=== PATIENT | female | born 1975 | race Caucasian/White ===

== ENCOUNTER 2017-03-25 19:06 | Observation (INO) ==
[2017-03-25 20:09] LABS: Basophils # 0.1 K/mcL (0.0-0.2); Basophils % 0.5 %; Eosinophils # 0.1 K/mcL (0.0-0.6); Eosinophils % 1.3 %; Hematocrit 42.5 % (35.3-44.9); Hemoglobin 13.9 g/dL (11.5-15.4); Immature Granulocytes % 0.2 % (0-4); Lymphocytes # 2.5 K/mcL (0.6-4.6); Lymphocytes % 25.1 %; Mean Corpuscular HGB Conc 32.7 g/dL (31.6-35.5); Mean Corpuscular Hemoglobin 29.1 pg (28.0-33.3); Mean Corpuscular Volume 89.1 fL (83.0-100.0); Monocytes # 0.7 K/mcL (0.0-1.3); Monocytes % 6.6 %; Neutrophils # 6.5 K/mcL (1.6-8.9); Platelet Count 440 K/mcL (140-400); Red Blood Count 4.77 M/mcL (3.82-4.97); Red Cell Distribution Width 13.4 % (11.5-14.5); Segmented Neutrophils % 66.3 %
[2017-03-25 20:21] LABS: BUN/Creatinine Ratio 13 (6-26); Blood Urea Nitrogen 12 mg/dL (7-20); Calcium 10.2 mg/dL (8.6-10.8); Carbon Dioxide 25 mEq/L (19-29); Chloride 103 mEq/L (98-109); Glucose 120 mg/dL (70-99); Osmolality,Calculated 285 (280-300); Potassium 3.3 mEq/L (3.5-4.5); Sodium 137 mEq/L (136-145); eGFR For African Americans > 60 (> 60); eGFR For Non-African Americans > 60 (> 60)
--- NOTE | 2017-03-25 22:22 | Emergency Department Note ---
Disposition Clinical Impression: Chest pain Qualifiers: Chest pain type: precordial pain Qualified Code(s): R07.2 - Precordial pain Disposition: Admitted As Inpatient Condition: Fair Time of Disposition: 23:19 General Adult HPI - General Chief complaint: ED Shortness of Breath/Dyspnea Stated complaint: SOB// high BP177/105 Time Seen by Provider: 03/25/17 20:52 Source: patient Limitations: no limitations Nursing Notes Reviewed: Yes Vital Signs Reviewed: Yes - History of Present Illness HPI Narrative: Patient is a 41-year-old female who presents to [facility] ED with a chief complaint of elevated blood pressure of 170/110 as well as "weird feeling in her left face and left neck. She also describes some epigastric burning sensation. Denies any nausea, vomiting, fever or chills. States she has felt her blood pressure high before. States she felt a pulsating sensation in the left side of her neck earlier today as well as a vibration sensation. States she called her cousin who is a nurse at her facility who told her to take her blood pressure. She took it and it was 170/ 110 and was recommended that she come into the emergency department. Patient denies any weakness in her arms or legs. No slurred speech or visual difficulties. No headache. No problems eating drinking or with urination or bowel movements. Onset (ago): hour(s) Location: face, neck, chest Radiation: non-radiation Pain Severity: moderate Pain Scale: 3 Improves with: nothing Worsens with: nothing Associated symptoms: Reports: denies other symptoms. Denies: chest pain, cough , headaches, nausea/vomiting, shortness of breath, weakness Treatments Prior to Arrival: none - Related Data Home Medications Medication Instructions Recorded Confirmed Levothyroxine [Synthroid] 150 mcg PO DAILY 03/26/17 03/26/17 Lisdexamfetamine Dimesylate 70 mg PO DAILY 03/26/17 03/26/17 [Vyvanse] amLODIPine [Norvasc] 5 mg PO DAILY 03/26/17 03/26/17 Allergies Allergy/AdvReac Type Severity Reaction Status Date / Time propoxyphene Allergy Vomiting Verified 03/25/17 19:47 [From Priscilla-N] All systems ED: reviewed and negative except as stated. Past Medical History - Past Medical History Attestation: Yes The following information was validated with the patient. Source: patient Medical history: Reports: hypertension, thyroid disease Surgical history: Reports: non-contributory Psychiatric history: Reports: ADHD - Social History Smoking Status: Never smoker Smokeless Tobacco Status: No Alcohol use: Reports: rarely Drug use: Reports: none Physical Exam - General Limitations: no limitations General appearance: alert - Head Head exam: atraumatic, normocephalic, normal inspection - Eye Eye exam: Present: normal appearance, PERRL, EOMI - ENT ENT exam: normal exam, normal oropharynx, mucous membranes moist - Neck Neck exam: Present: normal inspection, full ROM, trachea midline, other (No bruits) - Chest Chest inspection: Present: normal inspection, symmetric chest wall rise - Respiratory Respiratory exam: Present: normal lung sounds bilaterally - Cardiovascular Cardiovascular exam: Present: regular rate, normal rhythm, normal heart sounds - Abdominal Exam Abdominal exam: Present: soft, Non-Tender. Absent: tenderness, distention, guarding, rebound, rigidity - Extremities Exam Extremities exam: Present: normal inspection, full ROM. Absent: tenderness, pedal edema - Back Exam Back exam: Present: normal inspection, full ROM. Absent: tenderness - Neurological Exam Neurological exam: Present: alert - Psychiatric Psychiatric exam: Present: normal affect, normal mood - Skin Skin exam: Present: warm, dry, intact, normal color Course Course Narrative: Patient seen and examined. Patient describing hearing something coming from her carotid arteries. Also describing a funny sensation in her face. I do not feel this warrants a full stroke workup. She does has an NIH score of 0. Patient does have elevated blood pressure while she is here but I do not see a reason to treat it at this time. We will have her follow up with her primary care physician to get under better control. He recently started a new medication that she cannot remember the name of. We will have her call the office on Tuesday morning to see about increasing the dose. Due to patient's younger age and no risk factors aside from hypertension, I do not suspect that she would have carotid stenosis at this time. We will write her an outpatient lab radiology slipped to get this done on outpatient basis. Patient understand she may need prior authorization in order to do this. - Reevaluation(s) Reevaluation #1: Patient's lab work appeared unremarkable. Her EKG did show some signs of ST depression as well as inverted T waves that appear new from her prior EKG in 2012. With her symptoms of chest pain intermittently and these EKG changes we will admit her for observation and chest pain rule out ACS. I spoke with patient about the results and she agrees with admission. I spoke with the hospitalist who has accepted patient for admission. Time: 23:18 Vital Signs Temperature 98.4 F 03/25/17 19:41 Pulse Rate 103 03/25/17 19:41 Respiratory Rate 16 03/25/17 19:41 Blood Pressure 165/105 03/25/17 19:41 O2 Sat by Pulse Oximetry 97 03/25/17 19:41 Temperature 98.3 F 03/26/17 18:39 Pulse Rate 78 03/26/17 18:39 Respiratory Rate 18 03/26/17 18:39 Blood Pressure 123/84 03/26/17 18:39 O2 Sat by Pulse Oximetry 94 03/26/17 18:39 Oxygen Delivery Oxygen Delivery Room Air Medical Decision Making - Medical Records Medical records reviewed: Yes I reviewed the patient's medical records. - Lab Data Lab results reviewed: Yes I reviewed the patient's lab results. Result diagrams: 03/25/17 19:55 03/25/17 19:55 Lab Results 03/25/17 03/25/17 03/25/17 Range/Units 19:55 19:55 19:55 WBC 9.8 (4.3-11.1) K/mcL RBC 4.77 (3.82-4.97) M/mcL Hgb 13.9 (11.5-15.4) g/dL Hct 42.5 (35.3-44.9) % MCV 89.1 (83.0-100.0) fL MCH 29.1 (28.0-33.3) pg MCHC 32.7 (31.6-35.5) g/dL RDW 13.4 (11.5-14.5) % Plt Count 440 H (140-400) K/mcL MPV 9.0 L (9.4-12.4) fL Immature Gran % 0.2 (0-4) % Seg Neutrophils % 66.3 % Lymphocytes % 25.1 % Monocytes % 6.6 % Eosinophils % 1.3 % Basophils % 0.5 % Neutrophils # 6.5 (1.6-8.9) K/mcL Lymphocytes # 2.5 (0.6-4.6) K/mcL Monocytes # 0.7 (0.0-1.3) K/mcL Eosinophils # 0.1 (0.0-0.6) K/mcL Basophils # 0.1 (0.0-0.2) K/mcL Sodium 137 (136-145) mEq/L Potassium 3.3 L (3.5-4.5) mEq/L Chloride 103 (98-109) mEq/L Carbon Dioxide 25 (19-29) mEq/L BUN 12 (7-20) mg/dL Creatinine 0.91 (0.57-1.11) mg/dL Est GFR ( Amer) > 60 (> 60) Est GFR (Non-Af Amer) > 60 (> 60) BUN/Creatinine Ratio 13 (6-26) Glucose 120 H (70-99) mg/dL Calculated Osmolality 285 (280-300) Calcium 10.2 (8.6-10.8) mg/dL Troponin I 0.02 (0-0.03) ng/mL - Radiology Data Radiology results reviewed: Yes I reviewed the patient's radiology results. Chest X-Ray 03/25/17 19:48 IMPRESSION: No acute findings. D/ / Deanna Chaparro MD / Deanna Chaparro MD Interpreting Provider: Deanna Chaparro MD - EKG Data EKG #1 EKG attestation: Yes I reviewed and interpreted this EKG. EKG results narrative: EKG done at 1929 shows normal sinus rhythm with a rate of [address] elevation. There does appear to be some mild ST depression in leads V3 through V6 along with inverted T waves. This does appear new from prior EKG done 2012. Normal axis. Attestation Statement - Attestation Attestation: I examined this patient and my medical decision-making was reviewed with the Resident Physician. I agree with the documented findings, disposition and treatment plan as described except to the extent set forth below. Patient to ED complaining of pulsation in her neck. Patient has been having some epigastric pain. Her blood pressures been running high. She was initially started on a new medication that starts within a period she states she is on the pulsatile sensation in her neck and she is concerned that could be something wrong with her carotids. She is also experiencing some epigastric pain. HEENT exam shows no acute distress. Heart regular rate and rhythm lungs are clear. No carotid bruit. Plan. The patient has some new EKG changes will be admitted for further cardiac workup.
[2017-03-25] MEDS ORDERED: Ibuprofen 600 MG TABLET PO ONE (22:31)
[2017-03-25] MEDS ORDERED: Aspirin 81 MG TAB.CHEW ONE (23:55)
[2017-03-26] MEDS ORDERED: Naloxone 0.4 MG/ML INJ IVP PRN (00:03)
[2017-03-26] MEDS: Aspirin 325 MG TABLET PO ONE ×2 (00:07)
--- NOTE | 2017-03-26 00:11 | Internal Med History&Physical ---
Date of Encounter: 03/26/17 Time of Encounter: 00:06 Assessment and Plan (1) Chest pain Current visit: Yes Status: Acute check stress testing in a.m. Due to wooshing sound and left neck symptom, will order US doppler left neck and TTE. Trend trop Qualifiers: Chest pain type: precordial pain Qualified Code(s): R07.2 - Precordial pain (2) Hypothyroid Current visit: Yes Status: Acute Qualifiers: Qualified Code(s): E03.9 - Hypothyroidism, unspecified (3) HTN (hypertension), benign Current visit: Yes Status: Acute continue norvasc -recently started (4) ADHD (attention deficit hyperactivity disorder) Current visit: Yes Status: Acute continue med Qualifiers: Attention deficit-hyperactivity disorder type: combined inattentive- hyperactive Qualified Code(s): F90.2 - Attention-deficit hyperactivity disorder, combined type Internal Medicine - H&P: HPI Chief complaint: chest pain History of present illness: Ms. Espinosa is a 41 year old female with hx of HTN, ADHD who presents with chest pain evaluation. She noted onset of sternal chest discomfort since today, feels like a pinch, with radiation to left breast, lasting 30 sec or so, associated with SOB, but not extertional dependent. Feels like indigestion but not burning. She also noticed associated tightness along left neck down the left arm and also a "pulsatile/throbbing left akbar sensation" with "wooshing sound" appreciated. Family hx of CAD/OR in P.GF, M.GM, Half brother EKG reviewed by self with rate 72, non-specific T wave depression lateral leads. Past Med Surg Social Fam HX - Past Medical History Medical history: hypertension, thyroid disease Psychiatric history: ADHD - Past Surgical History Surgical History: non-contributory - Social History Smoking Status: Never smoker Smokeless Tobacco Status: No Alcohol use: rarely Drug use: none - Additional Family History Additional family history: HTN, CAD/OR Internal Medicine - H&P: Meds Ibuprofen [Motrin] 800 mg PO Q6-8H PRN #30 tablet 09/15/15 [Rx] Lisdexamfetamine Dimesylate [Vyvanse] 09/15/15 [History] Synthroid 09/15/15 [History] Acyclovir [Zovirax] 800 mg PO 5XD #25 tablet 05/28/16 [Rx] Docosanol [Abreva] 1 applic TP TID 7 Days 05/28/16 [Rx] 3 Allergy/AdvReac Type Severity Reaction Status Date / Time acetaminophen Allergy Vomiting Verified 03/25/17 19:47 [From Darvocet-N] propoxyphene Allergy Vomiting Verified 03/25/17 19:47 [From Darvocet-N] All Systems PM: A 10-system review of systems was performed and is negative for pertinent findings except as documented above in the HPI. Review of systems: ROS 14 point review of systems reviewed as best as possible given presentation. Pertinent positive or negative as per HPI or otherwise reviewed as negative - Constitutional Vitals: Temp Pulse Resp BP Pulse Ox 98.4 F 86 16 147/109 96 03/25/17 19:41 03/25/17 22:31 03/25/17 22:31 03/25/17 22:31 03/25/17 22:31 Exam: General - AAO x 3 Psych - Appropriate affect/speech. No agitation Eyes - CATHERINE. Eye lids intact. No scleral icterus ENT - Oral mucosa pink, dentition intact. External ear clear/dry/intact. No thyromegaly Lymphatics - No cervical/inguinal lympadenopathy Neuro - No gross peripheral or central neuro deficits with intact CN 2-12 exam Heart - Sinus. RRR. S1 and S2 present. No added HS/murmurs appreciated. No elevated JVD appreciated. No calf swellings/erythema Lung - Adequate air entry b/l, No crackes/wheezes appreciated GI - Soft, non-tender. No hepatosplenomegaly/ascites. BS+ - No CVA/suprapubic tenderness or palpable bladder distension Skin - Intact. No rash/petechiae/ecchymosis. Warm extremities MSK - Joints with normal ROM. No joint swellings Internal Med - H&P Results - Labs CBC & Chem 7: 03/25/17 19:55 03/25/17 19:55
[2017-03-26] MEDS ORDERED: Aspirin 81 MG TAB.CHEW PO ONE (00:15)
[2017-03-26] MEDS ORDERED: Aspirin 81 MG TAB.CHEW PO SCH ×3 (00:15)
[2017-03-26] MEDS: amLODIPine 5 MG TABLET PO SCH (10:43)
[2017-03-26] MEDS ORDERED: Acetaminophen 325 MG TABLET PO PRN (11:11)
[2017-03-26] MEDS ORDERED: *HR* Morphine 2 MG/ML SYRINGE IVP PRN (11:11)
--- NOTE | 2017-03-26 12:59 | Internal Med Progress Note ---
Date of Encounter: 03/26/17 Time of Encounter: 11:00 - Assessment and plan (1) Chest pain Current Visit: Yes Status: Acute Assessment and plan: Patient currently denies chest pain or shortness of breath. She does endorse a mild headache. She is also endorsing a whooshing/vomiting/vibrating since patient to the left side of her neck however carotid ultrasound negative and no bruit appreciated on examination. No venous distention. Echocardiogram pending. Second part of her stress test will be tomorrow. Troponins negative 3. Chest x-ray negative. We will continue to monitor in the meantime. ITS Impressions Chest X-Ray 03/25/17 19:48 IMPRESSION: No acute findings. D/ / Deanna Chaparro MD / Deanna Chaparro MD Interpreting Provider: Deanna Chaparro MD 03/26/17 10:13 - [facility]: [id number] : 1975 Patient Age: 41 CAROTID ULTRASOUND APPEARS WITHIN NORMAL LIMITS BILATERALLY. GIANNA ALMONTE RDCS Qualifiers: Chest pain type: precordial pain Qualified Code(s): R07.2 - Precordial pain (2) HTN (hypertension), benign Current Visit: Yes Status: Chronic Assessment and plan: Controlled, home dosing of amlodipine continued. We will continue to trend (3) ADHD (attention deficit hyperactivity disorder) Current Visit: Yes Status: Chronic Assessment and plan: Mood and affect stable. Continue home medication of Vyvanse Qualifiers: Attention deficit-hyperactivity disorder type: combined inattentive- hyperactive Qualified Code(s): F90.2 - Attention-deficit hyperactivity disorder, combined type (4) Hypothyroid Current Visit: Yes Status: Chronic Assessment and plan: TSH checked a couple of months ago, normal (5) Obese Current Visit: Yes Status: Chronic Qualifiers: Obesity type: due to excess calories Obesity classification: adult class 2 (BMI 35 ? 39.9) Serious obesity comorbidity presence: without serious comorbidity Body mass index: BMI 39.0-39.9 Qualified Code(s): E66.09 - Other obesity due to excess calories; Z68.39 - Body mass index (BMI) 39.0-39.9, adult - Subjective Interval history: Patient seen and examined. On examination, patient sleeps supine in bed. She awakened easily to voice. She states she has a mild headache that improved slightly. She states that she continues to have a humming, Alex, and a vibrating sounds on the left side of her neck and into her left ear. She denies chest pain or shortness of breath at this time. She states she is eating well. - Constitutional Vitals: Temp Pulse Resp BP Pulse Ox 98.0 F 74 16 129/87 94 03/26/17 11:15 03/26/17 11:15 03/26/17 11:15 03/26/17 11:15 03/26/17 11:15 General appearance: Present: A&O X 3, pleasant, no acute distress, obese, answers questions appropriately - Head Head exam: Present: atraumatic, normocephalic - Eye Eye exam: Present: PERRL, conjuntiva pink, sclera anicteric Pupils: Present: PERRL - Neck Neck exam general surgery: Present: supple, trachea midline. Absent: lymphadenopathy - Expanded Neck Exam Neck exam: Absent: carotid bruit - Respiratory Respiratory exam: Present: CTAB. Absent: accessory muscle use, rales, respiratory distress, rhonchi, wheezes - Cardiovascular Cardiovascular exam: Present: RRR, +S1, +S2. Absent: diastolic murmur, gallop, rubs, systolic murmur - GI/Abdominal GI/Abdominal exam: Present: normal bowel sounds, soft, no peritoneal signs. Absent: distended, tenderness - Extremities Exam Extremities exam: Present: warm, radial pulses palpable and symmetrical. Absent : calf tenderness, cyanotic, pedal edema - Neurological Exam Neurological exam: Present: alert, CN II-XII intact, oriented X3, no focal deficits, strengths equal and symetr throughout. Absent: pronater drift, facial droop, speech deficit - Skin Skin exam: Present: dry, intact, normal color, warm Internal Medicine: Result - Labs CBC & Chem 7: 03/25/17 19:55 03/25/17 19:55 Labs: Cardiac Enzymes 03/26/17 03/26/17 Range/Units 00:53 06:27 Troponin I 0.00 0.01 (0-0.03) ng/mL Consult Discharge Plan - Plan Referrals: Kanchan Romero DO [Primary Care Provider] -
[2017-03-26] MEDS: *HR* HYDROcodone/Acet 5/325 mg TABLET PO PRN (17:53)
[2017-03-26] MEDS: Acetaminophen 325 MG TABLET PO PRN (20:05)
[2017-03-27 05:01] LABS: BUN/Creatinine Ratio 14 (6-26); Blood Urea Nitrogen 13 mg/dL (7-20); Calcium 9.2 mg/dL (8.6-10.8); Carbon Dioxide 26 mEq/L (19-29); Chloride 105 mEq/L (98-109); Glucose 112 mg/dL (70-99); Magnesium 2.4 mg/dL (1.6-2.6); Osmolality,Calculated 289 (280-300); Potassium 3.6 mEq/L (3.5-4.5); Sodium 139 mEq/L (136-145); eGFR For African Americans > 60 (> 60); eGFR For Non-African Americans > 60 (> 60)
[2017-03-27] MEDS: Acetaminophen 325 MG TABLET PO PRN (10:14)
[2017-03-27] MEDS: amLODIPine 5 MG TABLET PO SCH (10:15)
--- NOTE | 2017-03-27 13:49 | Cardiology Consult Note ---
Date of Encounter: 03/27/17 Time of Encounter: 12:30 Assessment and Plan (1) Chest pain Current Visit: Yes Status: Acute Per cardiology: -Chest pain at rest. Denies excertional symptoms. -HTN on admission with BP 170s systolic. -Troponins negative x4. -ECG with no ischemic changes. -Denies current chest pain. -Echo with LVEF 60%, mild diastolic dysfunction, mild AR, all almaguer with normal motion. -ABnormal stress test. -Will continue to monitor. Qualifiers: Chest pain type: precordial pain Qualified Code(s): R07.2 - Precordial pain (2) Abnormal stress test Current Visit: Yes Status: Acute Per cardiology: -Nuclear stress with small sized, mild intensity, reversible ischemia involving mid-apical anteroseptum. -Discussed at length with patient, who at this time prefers medical management. -Beta blcoker and asa added. Will check Lipids and LFTs in am. (3) HTN (hypertension), benign Current Visit: Yes Status: Chronic Per cardiology: -KNown HTN, however was not on medication. -BP 170s systolic on admission. -Will stop norvasc. -Started beta tiffany. -Will continue to monitor. Discussion w patient/family: The assessment and plan as outlined above was discussed with the patient who expressed understanding and agreement. All questions were answered. Thank you for involving us in the care of your patient. Please call with any questions. Discussed and reviewed with . History of Present Illness Consult date: 03/27/17 Requesting physician: Juhi Moreira Consult reason: abnormal stress test Chief complaint: chest pain History of present illness: Ms. Espinosa is a 41 year old female with a relevant past medical history of HTN, obesity. Patient reports family history of CAD with half brother having [place] in his 50s. Patient also reports second degree relatives with CAD. Patient states she was at her desk when she had sudden onset of midsternal chest pain. Patient states it felt somewhat like indigestion pain. Patient denies aggravating factors. Patient states was given ASA in ER and pain resolved. Patient denies current chest pain. Pateint denies shortness of breath or increased fatigue. Patient does report increased stress with the passing of her father and work related stress. Past Med Surg Social Fam HX - Past Medical History Attestation: Yes The following information was validated with the patient. Source: patient, old records reviewed Medical history: hypertension, thyroid disease Psychiatric history: ADHD - Past Surgical History Surgical History: non-contributory - Social History Smoking Status: Never smoker Smokeless Tobacco Status: No Alcohol use: rarely Drug use: none - Family History Paternal Grandfather Age at : 60 Hx Family Cardiac Disorders: Yes ([place]) Hx Family Endocrine Disorder: Yes (DM) Medications and Allergies Levothyroxine [Synthroid] 150 mcg PO DAILY 03/26/17 [History] Lisdexamfetamine Dimesylate [Vyvanse] 70 mg PO DAILY 03/26/17 [History] amLODIPine [Norvasc] 5 mg PO DAILY 03/26/17 [History] 3 Allergy/AdvReac Type Severity Reaction Status Date / Time propoxyphene Allergy Vomiting Verified 03/25/17 19:47 [From PriscillaElpidio] All Systems Review: A 10-system review of systems was performed and is negative for pertinent findings except as documented above in the HPI. - Cardiovascular Cardiovascular: as per HPI, chest pain at rest Physical Examination Vital Signs Temperature 98.4 F 03/25/17 19:41 Pulse Rate 103 03/25/17 19:41 Respiratory Rate 16 03/25/17 19:41 Blood Pressure 165/105 03/25/17 19:41 O2 Sat by Pulse Oximetry 97 03/25/17 19:41 Temperature 98.0 F 03/27/17 07:00 Pulse Rate 66 03/27/17 07:00 Respiratory Rate 16 03/27/17 07:00 Blood Pressure 122/82 03/27/17 07:00 O2 Sat by Pulse Oximetry 94 03/27/17 07:00 Oxygen Delivery Oxygen Delivery Room Air General: Conversant, No Apparent Distress HEENT: Atraumatic, Normocephaly, Mucus Membranes Moist Neck: No JVD, Normal carotid pulses Cardiac: Reg Rate and Rhythm, Normal S1 and S2, No Murmur Lungs: Normal Breath Sounds, No Wheeze, Rales, Rhonchi Neuro: Alert and responsive, No focal deficits noted Abdomen: Soft, Non-Tender Skin: No rashes noted on visualized skin Musculoskeletal: No Chest Wall Tenderness Extremities: No Clubbing, No Cyanosis, No Edema, Normal Pulses Results 03/25/17 19:55 03/27/17 04:04 Lab Results Active Medications Acetaminophen (Tylenol) 650 mg PO Q6HR PRN PRN Reason: Mild Pain/Fever Stop: 09/25/17 11:12 Last Admin: 03/27/17 10:14 Dose: 650 mg Hydrocodone Bitart/Acetaminophen ([place] 5-325 Mg) 1 tab PO Q6HR PRN PRN Reason: Moderate Pain Stop: 09/25/17 11:12 Last Admin: 03/26/17 17:53 Dose: 1 tab Levothyroxine Sodium (Synthroid) 125 mcg PO 0630 [facility] Stop: 09/25/17 06:31 Last Admin: 03/27/17 05:43 Dose: 125 mcg Metoprolol Succinate (Toprol Xl) 25 mg PO DAILY [facility] Stop: 09/26/17 13:46 Morphine Sulfate (Morphine Sulfate) 2 mg IVP Q4HR PRN PRN Reason: Severe Pain Stop: 09/25/17 11:12 Naloxone HCl (Narcan) 0.4 mg IVP Q2MIN PRN PRN Reason: Opioid Reversal Stop: 09/25/17 00:04 Pharmacy Profile Note (Patient Taking Own Medication) 1 each PO DAILY [facility] Stop: 09/25/17 09:01 Last Admin: 03/27/17 10:28 Dose: 1 each Laboratory Tests 03/25/17 03/25/17 03/26/17 19:55 19:55 00:53 Hgb 13.9 Creatinine Troponin I 0.02 0.00 03/26/17 03/26/17 03/27/17 06:27 13:12 04:04 Hgb Creatinine 0.92 Troponin I 0.01 0.00 - Imaging and Cardiology Chest Xray: report reviewed Stress Test: report reviewed Echo: report reviewed - EKG Interpretation EKG results cardiology: personally reviewed (ECG with SR, HR 72.), other ( Telemetry reviewed with average HR 75, sinsu rhythm. PVCs and PACs noted.) Consult Discharge Plan - Plan Referrals: Kanchan Romero DO [Primary Care Provider] -
[2017-03-27] MEDS: Aspirin Enteric Coated 81 MG Tablet PO SCH (17:37)
[2017-03-27] MEDS: Metoprolol XL (24 HR) Succ 25 MG TAB.ER.24H PO SCH (17:37)
--- NOTE | 2017-03-27 17:38 | Internal Med Progress Note ---
Date of Encounter: 03/27/17 Time of Encounter: 12:30 - Assessment and plan (1) Chest pain Current Visit: Yes Status: Acute Assessment and plan: Patient currently denies chest pain or shortness of breath. She is also endorsing a whooshing/vomiting/vibrating sensation to the left side of her neck however carotid ultrasound negative and no bruit appreciated on examination. No venous distention. Echocardiogram unremarkable with ejection fraction of 60% , mild diastolic dysfunction, mild AR. Euvolemic on examination. Troponins negative 3. Chest x-ray negative. Stress test was abnormal and cardiology was brought on board. Plan is to proceed with a left heart catheter tomorrow. Nothing by mouth at midnight. ITS Impressions Chest X-Ray 03/25/17 19:48 IMPRESSION: No acute findings. D/ / Deanna Chaparro MD / Deanna Chaparro MD Interpreting Provider: Deanna Chaparro MD 03/26/17 10:13 - Vascular Preliminary by Gianna Almonte [facility] Num: [id number] : 1975 Patient Age: 41 CAROTID ULTRASOUND APPEARS WITHIN NORMAL LIMITS BILATERALLY. GIANNA ALMONTE RDCS Echocardiogram impressions: LVEF 60%. Normal LV chamber size, wall thickness and function. Mild left ventricular diastolic dysfunction. Normal right ventricular structure and function. Mild aortic regurgitation. No evidence of pulmonary hypertension. 2 Day Nuclear stress test impression: Exercise ECG demonstrated worsening of baseline ST-T changes, especially in the inferior leads (2-3mm ST depression) suggestive of ischemia. Exercise capacity was good. No chest pain. Gated ejection fraction greater than 70%. Small size, mild intensity, reversible defect in the mid to apical anterior lateral segments possibly due to ischemia. Ordering provider notified via [employer]. Qualifiers: Chest pain type: precordial pain Qualified Code(s): R07.2 - Precordial pain (2) HTN (hypertension), benign Current Visit: Yes Status: Chronic Assessment and plan: Initially hypertensive, then controlled. Today, however, BP up to 149/102. Started on metoprolol per cardiology. Will trend and adjust medications as indicated. (3) ADHD (attention deficit hyperactivity disorder) Current Visit: Yes Status: Chronic Assessment and plan: Mood and affect stable. 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 On examination, patient sitting upright in bed preparing to eat her lunch. Patient states the pain and pressure in her chest has resolved. She is endorsing a normal appetite as well. She denies shortness of breath. - Constitutional Vitals: Temp Pulse Resp BP Pulse Ox 98.5 F 92 16 149/102 97 03/27/17 15:01 03/27/17 15:01 03/27/17 15:01 03/27/17 15:01 03/27/17 15:01 General appearance: Present: A&O X 3, morbidly obese, pleasant, no acute distress, answers questions appropriately - Head Head exam: Present: atraumatic, normocephalic - Eye Eye exam: Present: PERRL, conjuntiva pink, sclera anicteric Pupils: Present: PERRL - Neck Neck exam general surgery: Present: supple, trachea midline. Absent: lymphadenopathy - Respiratory Respiratory exam: Present: CTAB. Absent: accessory muscle use, rales, respiratory distress, rhonchi, wheezes - Cardiovascular Cardiovascular exam: Present: RRR, +S1, +S2. Absent: diastolic murmur, gallop, rubs, systolic murmur - GI/Abdominal GI/Abdominal exam: Present: normal bowel sounds, soft, no peritoneal signs. Absent: distended, tenderness - Extremities Exam Extremities exam: Present: warm, radial pulses palpable and symmetrical. Absent : calf tenderness, cyanotic, pedal edema - Neurological Exam Neurological exam: Present: alert, CN II-XII intact, normal gait, oriented X3, no focal deficits, strengths equal and symetr throughout. Absent: pronater drift, facial droop, speech deficit - Skin Skin exam: Present: dry, intact, normal color, warm Internal Medicine: Result - Labs CBC & Chem 7: 03/25/17 19:55 03/27/17 04:04 Labs: BMP 03/27/17 04:04 Sodium 139 Potassium 3.6 Chloride 105 Carbon Dioxide 26 BUN 13 Creatinine 0.92 Glucose 112 H Calcium 9.2 Consult Discharge Plan - Plan Referrals: Kanchan Romero DO [Primary Care Provider] -
[2017-03-28 06:14] LABS: Prothrombin Time 11.1 Seconds (9.4-12.1)
[2017-03-28 06:32] LABS: Alanine Aminotransferase 36 Units/L (0-55); Aspartate Amino Transferase 23 Units/L (5-34); BUN/Creatinine Ratio 15 (6-26); Blood Urea Nitrogen 13 mg/dL (7-20); Calcium 9.4 mg/dL (8.6-10.8); Carbon Dioxide 25 mEq/L (19-29); Chloride 105 mEq/L (98-109); Chol/HDL Ratio 3.4 (0-4.9); Cholesterol 169 mg/dL (< 200); Glucose 111 mg/dL (70-99); HDL Cholesterol 49 mg/dL (40-59); LDL Cholesterol,Calculated 100 mg/dL (0-99); Osmolality,Calculated 289 (280-300); Potassium 3.6 mEq/L (3.5-4.5); Sodium 139 mEq/L (136-145); Triglycerides 100 mg/dL (< 150); eGFR For African Americans > 60 (> 60); eGFR For Non-African Americans > 60 (> 60)
--- NOTE | 2017-03-28 08:31 | Carotid Imaging Report ---
Carotid Duplex Patient Name:Reina Espinosa Order Number:[id number] Procedure Date:03/26/2017 Date:1975Age:41 yrs Gender:Female Lt BP:122 / 85 mmHg Rt.BP:122 / 85 mmHgHeart Rate: Location:[facility] Room #: 3B48 Conveyor Technician:Gianna Almonte RDCS Referring MD:Ghislaine Thomas MD radio assembler:DO Ngozi Tran MD:Ibrahima Rendon MD Primary Indications:Pulsatile left carotid Risk Factors Yes/No Hypertension Yes Diabetes No Hypercholesterolemia No Smoking Current No Hx of TIA No Hx of CVA No Previous Vascular Surgery No Impressions: Findings: Bilateral carotid system is essentially normal. Findings Carotid Duplex: Argueta scale imaging combined with Doppler flow analysis suggests normal findings bilaterally. Right: The right proximal common carotid artery has a PSV of 76 cm/s and a EDV of 23 cm/s. The right mid common carotid artery has a PSV of 79 cm/s and a EDV of 24 cm/s. The right distal common carotid artery has a PSV of 67 cm/s and a EDV of 28 cm/s. The right bifurcation has a PSV of 62 cm/s and a EDV of 23 cm/s. The right proximal internal carotid artery has a PSV of 97 cm/s and a EDV of 43 cm/s. The right mid internal carotid artery has a PSV of 79 cm/s and a EDV of 38 cm/s. The right distal internal carotid artery has a PSV of 87 cm/s and a EDV of 43 cm/s. The right eca has a PSV of 94 cm/s and a EDV of 23 cm/s. The right vertebral artery has a PSV of 46 cm/s and a EDV of 16 cm/s. Left: The left proximal common carotid artery has a PSV of 104 cm/s and a EDV of 30 cm/s. The left mid common carotid artery has a PSV of 102 cm/s and a EDV of 30 cm/s. The left distal common carotid artery has a PSV of 91 cm/s and a EDV of 35 cm/s. The left bifurcation has a PSV of 91 cm/s and a EDV of 30 cm/s. The left proximal internal carotid artery has a PSV of 74 cm/s and a EDV of 31 cm/s. The left mid internal carotid artery has a PSV of 104 cm/s and a EDV of 38 cm/s. The left distal internal carotid artery has a PSV of 100 cm/s and a EDV of 44 cm/s. The left eca has a PSV of 94 cm/s and a EDV of 20 cm/s. The left vertebral artery has a PSV of 55 cm/s and a EDV of 26 cm/s. Prior Study: No prior study available for comparison. Carotid Results Right PSV EDV Assessment Proximal CCA 76 23 Normal Mid CCA 79 24 Normal Distal CCA 67 28 Normal Bifurcation 62 23 Normal Proximal ICA 97 43 Normal Mid ICA 79 38 Normal Distal ICA 87 43 Normal ECA 94 23 Normal Vertebral Artery 46 16 Normal Left PSV EDV Assessment Proximal CCA 104 30 Normal Mid CCA 102 30 Normal Distal CCA 91 35 Normal Bifurcation 91 30 Normal Proximal ICA 74 31 Normal Mid ICA 104 38 Normal Distal ICA 100 44 Normal ECA 94 20 Normal Vertebral Artery 55 26 Normal Ratio's Right ICA/CCA Ratio: 1.20 ICA/CCA Values: 97/79 Left ICA/CCA Ratio: 1.00 ICA/CCA Values: 104/104 Updated by Ibrahima Rendon MD on 03/26/2017 4:01:22 PM electronically signed on 03/26/2017 4:01:50 PM with status of Final
--- NOTE | 2017-03-28 08:35 | Nuclear Medicine Stress Report ---
Exercise Nuclear Stress 2 day Name: Reina Espinosa Date of Study: 03/26/2017 Date: 1975 Ht: 63.0 in Medical Record#: [id number] Age: 41 Wt: 218.0 lb Gender: Female Order #: [id number] Location: [facility] Room: [facility] Supervising Provider: Viky Coker CNP Reading Physician: Rodri Dolan DO, FACC, FASNC Ordering Physician: Juhi Moreira CNP Primary Care Physician: Kanchan Romero DO Stress Technologist: Loretta Garcia WAD LUBRICATOR, CCT Telecommunicator Supervisor: Marielos Boyce Indications: Chest Pain Impression: Exercise ECG demonstrated worsening of baseline ST-T changes, especially in the inferior leads (2-[address] depression) suggestive of ischemia. The exercise capacity was good. No chest pain. Gated EF > 70%. Small sized, mild intensity, reversible defect in the mid to apical anteroseptal segments possibly due to ischemia. Ordering provider notified via [employer]. History: Hypertension Stress Test Summary: Stress Test Type: Treadmill Protocol: Khai Baseline Information: Initial Heart Rate: 80 Blood Pressure: 122/86 Stress Information: Stress Time: 7 min 30 sec Test Terminated Due to (primary): Dyspnea Fatigue Maximum Blood Pressure: 172/84 Maximum Heart Rate: 173 Percent Maximum Heart Rate Achieved: 97 Double Product: 21194 METS Reached: 10.1 Symptoms: Shortness of breath, No chest symptoms Nuclear Summary: SPECT myocardial perfusion imaging using Tc99m Sestamibi given intravenously was performed at rest and following cardiac stress testing. The resting images were obtained following initial dose of 34.1 mCi. Following stress an additional dose of 34.7 mCi was given at peak exercise or 30 seconds post regadenoson infusion. Medication Given: Time Medication Dose Units Route Findings: Stress Note * Resting ECG demonstrated normal sinus rhythm with nonspecific ST-T changes. * No baseline arrhythmias were noted. * Exercise ECG demonstrated worsening of baseline ST-T changes, especially in the inferior leads (2-[address] depression) suggestive of ischemia. * No arrhythmias were noted during stress. * The exercise capacity was good. No chest pain. * Patient had no chest pain during stress. * Normal hemodynamic responses to exercise. Study Quality * Study quality is average. Gated EF > 70% * Gated EF > 70%. Left Ventricle * The left ventricle is not dilated. LVEDV = 71 mL. NORMALS * Normal wall motion. * Normal Segmental Perfusion in rest. Anterior Perfusion Stress * The mid to apical anteroseptal segments show a mild reduction in perfusion. TID * No evidence of transient ischemic dilatation. TID ratio = 0.95. Lung Uptake * There is no evidence of increase lung uptake. Updated by Rodri Dolan DO, FACRaman, ALEXA, GENET on 03/27/2017 11:49:40 AM electronically signed on 03/27/2017 11:51:29 AM with status of Final
[2017-03-28] MEDS: Aspirin Enteric Coated 81 MG Tablet PO SCH (09:23)
[2017-03-28] MEDS: Metoprolol XL (24 HR) Succ 25 MG TAB.ER.24H PO SCH (09:23)
--- NOTE | 2017-03-28 10:49 | Pre-Sedation Evaluation ---
Pre-sedation evaluation - Pre-sedation checklist Date of procedure: 03/28/17 Procedure: [facility] Recent Vitals: Last Vital Signs Temp 97.7 F 03/28/17 07:04 Pulse 70 03/28/17 07:04 Resp 16 03/28/17 07:04 BP 142/88 03/28/17 07:04 Pulse Ox 93 03/28/17 07:04 H&P (including ROS) documented in medical record: Yes Previous reaction to sedatives/anesthetics: No Dietary Status: NPO after Midnight Airway Assessment: Patient can open mouth completely, TMJ function normal ASA Classification *see protocol: CLASS II-Mild systemic disease Plan of Care: Pt appropriate candidate for procedure/moderate/conscious sedation , Risks/benefits of procedure/sedation discussed w/ patient/family
[2017-03-28] MEDS ORDERED: Verapamil 5 MG/2 ML VIAL ONE (14:27)
[2017-03-28] MEDS ORDERED: 0.9 % Sodium Chloride 1,000 ML ONE (14:27)
[2017-03-28] MEDS ORDERED: Heparin 1,000 UNITS/500 mL NS 500 ML ONE (14:28)
[2017-03-28] MEDS ORDERED: Nitroglycerin 1,000 MCG/10 ML VIAL IV ONE (14:28)
[2017-03-28] MEDS ORDERED: *HR* Heparin 10,000 UNIT/10 ML VIAL ONE (14:28)
[2017-03-28] MEDS ORDERED: *HR* Midazolam HCl 5 MG/5 ML VIAL IVP ONE (14:45)
[2017-03-28] MEDS ORDERED: *HR* FentaNYL (PF) 100 MCG/2 ML VIAL ONE (14:45)
--- NOTE | 2017-03-28 15:41 | Invasive Diagnostic Lab Proc ---
Name: Reina Espinosa Date of Study: 03/28/2017 Date: 1975 Ht: 61.8in Medical Record#: [id number] Age: 41 Wt: 218.26lb Gender: Female BSA: 1.98 Order #: [id number] BMI: 40.16 Physicians Procedure Physician: Khai Alexander MD, [facility] Referring MD: Referring MD: Staff Name Position Time In Ralph Arrington RN Auto Travel Counselor 02:47 PM Deysi Maldonado RN Auto Travel Counselor 02:47 PM Ruth Plummer RT (R) Scrub 02:48 PM Molly Moe RN Monitor 02:48 PM Awa Benavidez RT (R) Monitor 02:48 PM Indications Indication Abnormal Test - Stress Procedures Performed Procedure L HRT ARTERY/VENTRICLE ANGIO Pre-Procedure Checklist Informed consent is complete signed and on chart. H&P is on chart. ID band is on and ID verified with patient. Patient NPO for procedure The procedure was described for the patient and questions were answered. Blood Pressure: 150/88 ECG is on chart. Rhythm: NSR Plan of Care Patient will tolerate the procedure without complications. Adequate level of comfort will be maintained. Hemodynamics will remain stable Patient will recover from procedure without complications. Respiratory function will be maintained. Cardiac rhythm will remain stable. Patient temperature will be maintained. Patient and/or family have verbalized understanding of the procedure. Patient Education Chief Complaint/Reason for Test: Cardiac Cath Developmental Category: Adult (18-64 years) Developmentally Appropriate for Age: Yes Learning Barriers: None Education Needs: Procedure Education Method: Verbal Information Taught: Cardiac Cath Educational Evaluation: Able to repeat information Intravenous Access Time IV Size Location DC'd Fluid/Drip Rate Units RN 02:52 PM 20g 1 08/04" Patent On Arrival Rt Antecubital 0.9NaCl 50 ml/hr Ralph Arrington RN Allergies propoxyphene acetaminophen DARVOCET Vital Signs Time BP (mmHg) HR (bpm) O2 Sat. RR (bpm) LOC 02:55 PM / % 5 = Fully awake and oriented or at pre-proc level 02:55 PM / % 4 = Oriented but drowsy 03:10 PM / % 5 = Fully awake and oriented or at pre-proc level 02:49 PM 150 / 88 69 97 % 02:53 PM 129 / 90 74 99 % 14 02:58 PM 121 / 82 66 95 % 15 03:03 PM 124 / 76 63 96 % 15 03:08 PM 123 / 80 80 97 % 21 03:13 PM 121 / 71 69 94 % 16 03:18 PM 132 / 91 67 96 % 21 03:23 PM 129 / 81 68 97 % 21 Procedural Medications Time Medication Dose Units Method Given By 02:54 PM Oxygen 2 L/min nasal cannula Ralph Arrington RN 02:54 PM Versed 3 mg Intravenous Ralph Arrington RN 02:54 PM Fentanyl 50 mcg Intravenous Ralph Arrington RN 03:06 PM Lidocaine 2% 0.5 ml Subcutaneous Khai Alexander MD, [facility] 03:08 PM Heparin 4000 units Nitroglycerin 200 mcg Verapamil 2.5 mg Intraarterial Khai Alexander MD, [facility] ASA Classification: CLASS II- Mild systemic disease (i.e. well-controlled diabetes, hypertension, asthma, cigarette smoking) Nichelle Score Preprocedure Postprocedure Activity 2- Moves 4 extremities sustained head lift Activity 2- Moves 4 extremities sustained head lift Circulation 2- SBP +/= 20 points of pre-anesthetic level Circulation 2- SBP +/= 20 points of pre-anesthetic level Consciousness 2- Awake and alert oriented x 3 Consciousness 2- Awake and alert oriented x 3 O2 Saturation 2- Able to maintain O2 satruation of 92% on room air O2 Saturation 2- Able to maintain O2 satruation of 92% on room air Respiratory 2- Able to deep breathe and cough well Respiratory 2- Able to deep breathe and cough well Total Score 10 Total Score 10 Contrast Agent: Isovue Diagnostic Contrast: 71 ml Total Contrast: 71 ml Fluoro Dose: 276 mGy Procedure Log Time Note Enter By 02:47 PM Pt arrived to hemodialysis lab technician 2 at 14:47 tsites 02:47 PM Ralph Arrington RN Position: Auto Travel Counselor Time in: 14:47 tsites 02:48 PM CathStat 02:48 PM Vitals capture started with the following parameters, Patient=Adult, Interval=5 min, Initial Zikxvzxd=072 mmHg, Deflation Rate=5 mmHg, Cuff placed on Right Arm 02:48 PM Deysi Maldonado RN Position: Auto Travel Counselor Time in: 14:47 tsites 02:48 PM Ruth Plummer RT (R) Position: Scrub Time in: 14:48 tsites 02:48 PM Molly Moe RN Position: Monitor Time in: 14:48 tsites 02:48 PM Sites, Awa RT (R) Position: Monitor Time in: 14:48 tsites 02:48 PM Patient charges- Angio tray pack, Navilyst 3mm J, Pulse Oximetry and ACIST tubing and transducer tsites 02:48 PM Case Delayed No tsites 02:49 PM Hair removed from procedure site in procedure lab using clippers. Right wrist & right groin prepped with Chloraprep by Deysi Maldonado RN, safety strap applied then patient was draped. Skin intact. tsites 02:49 PM HR=69 bpm, IJSE=119/88 mmhg, SpO2=97.0 % 02:49 PM Physican paged/called 14:49. tsites 02:49 PM Physican responded and notified patient is ready 14:49 tsites 02:49 PM Physician arrived 14:49 tsites 02:49 PM ASA Class CLASS II- Mild systemic disease (i.e. well-controlled diabetes, hypertension, asthma, cigarette smoking) tsites 02:49 PM Meet and greet completed tsites 02:49 PM Sign in performed according to hospital policy. tsites 02:49 PM Procedure start 14:49 tsites 02:53 PM HR=74 bpm, MSSS=269/90 mmhg, SpO2=99.0 %, Resp=14 B/min 02:54 PM Time: 14:54 Oxygen on at 2 L/min per nasal cannula by Ralph Arrington RN tsites 02:54 PM Time: 14:54 Versed 3 mg Intravenous Given by Ralph Arrington RN tsites 02:54 PM Time: 14:54 Fentanyl 50 mcg Intravenous Given by Ralph Arrington RN tsites 02:54 PM Time: 14:54 Patient comfortable and pain free: Yes tsites 02:55 PM Pressure channel 3 zeroed. 02:55 PM Time: 14:55LOC: 5 = Fully awake and oriented or at pre-proc level tsites 02:58 PM Pressure channel 3 zeroed. 02:58 PM HR=66 bpm, KNXB=057/82 mmhg, SpO2=95 %, Resp=15 B/min 03:03 PM HR=63 bpm, HECL=372/76 mmhg, SpO2=96 %, Resp=15 B/min 03:06 PM Time out performed according to hospital policy tsites 03:07 PM Time: 15:06 0.5 ml Lidocaine 2% to right radial Subcutaneous Given by Khai Alexander MD, [facility] tsites 03:07 PM Access obtained by percutaneous puncture. 5Fr 10cm Terumo Glidesheath sheath placed in right Radial artery. [id number] tsites 03:08 PM Time: 15:08 Patient given 4,000 units Heparin, 200 mcg Nitroglycerin, and 2.5 mg Verapamil Intraarterial by Khai Alexander MD, [facility] tsites 03:08 PM 5Fr TIG catheter inserted over the wire DN tsites 03:08 PM HR=80 bpm, YZMV=089/80 mmhg, SpO2=97 %, Resp=21 B/min 03:08 PM 0.035 260cm Navilyst 3mmJ wire [id number] tsites 03:09 PM wire removed tsites 03:10 PM Time: 14:54 Patient comfortable and pain free: Yes tsites 03:10 PM Time: 14:55LOC: 4 = Oriented but drowsy tsites 03:10 PM RCA angiography performed in multiple views. tsites 03:10 PM Recorded Pressure: Ao, HR=82, Condition=Condition 1 (Aorta) Ao 111/87/100 03:10 PM repositioned catheter tsites 03:11 PM LCA angiography performed in multiple views. tsites 03:11 PM Recorded Pressure: Ao, HR=62, Condition=Condition 1 (Aorta) Ao 105/76/91 03:13 PM wire reinserted tsites 03:13 PM HR=69 bpm, OJNU=003/71 mmhg, SpO2=94.0 %, Resp=16 B/min 03:14 PM Catheter removed tsites 03:15 PM 5Fr MPA catheter inserted over the wire [id number] tsites 03:17 PM Catheter removed tsites 03:18 PM 5Fr Pigtail catheter inserted over the wire [facility] tsites 03:18 PM Catheter selectively placed in left ventricle tsites 03:18 PM Pressure channel 3 zeroed. 03:18 PM Recorded Pressure: LV, HR=97, Condition=Condition 1 (Left Ventricle) LV 133/19/45 03:18 PM HR=67 bpm, HKIR=642/91 mmhg, SpO2=96.0 %, Resp=21 B/min, Comment=NSR 03:18 PM Bolus angiogram of left Ventricle complete: 10 ml/sec for a total of 20 mls tsites 03:18 PM Recorded Pressure: LV, Ao, HR=75, Condition=Condition 1 (Left Ventricle) LV 145/10/24, (Aorta) Ao 144/92/115 03:19 PM Catheter removed tsites 03:20 PM Wire removed tsites 03:20 PM Procedure completed at 15:19 tsites 03:21 PM Isovue 370 - 200ml,1 Bottle(s) used. tsites 03:21 PM 10 ml air in Vasc Band. tsites 03:21 PM Post ECG NSR tsites 03:22 PM Post Blood Pressure 132/91 tsites 03:22 PM 15:22 Post Pulses Bilateral radial 1+ tsites 03:22 PM Information taught Cardiac Cath and Vasc Band tsites 03:22 PM Education needs Procedure, Plan of Care, and Responsibilities of Patient in Care tsites 03:22 PM Learning barriers :None tsites 03:22 PM Education Methods Verbal tsites 03:22 PM Education evaluation Able to repeat information tsites 03:22 PM Site status No bleeding/hematoma - Rt Wrist as reported by Ruth Plummer RT (R) at 15:22 tsites 03:23 PM Plavix, Effient or Brilinta given No tsites 03:23 PM Delay to floor No tsites 03:23 PM HR=68 bpm, OPLA=190/81 mmhg, SpO2=97.0 %, Resp=21 B/min 03:24 PM Sign out completed: Radiation Dose 275.55 mGy Fluoro Time: 3.4 Isovue 370 - 200ml contrast 71 ml given by Khai Alexander MD, FACC. Complications: NoneCardiac Rehab Consult needed: NoConfirmed administered medications: Yes tsites 03:25 PM Time: 15:10LOC: 5 = Fully awake and oriented or at pre-proc level tsites 03:25 PM Report given to Lucille RN Pt taken to 3B Room #48. 15:25 tsites 03:26 PM Family placed in consult room. tsites 03:26 PM Complications: None tsites 03:26 PM Fluoro Time: 3.4 tsites 03:26 PM Isovue 370 - 200ml contrast 71 ml given by Khai Alexander MD, FACC. tsites 03:27 PM Radiation Dose 275.55 mGy tsites 03:27 PM Patient out of room: 15:27 tsites 03:27 PM Coronary Dominance: right tsites Complications Complication None Hemodynamics Pressures Site Systolic/A Wave Diastolic/V Wave Mean AO 111 87 100 AO 105 76 91 LV 133 19 45 LV 145 10 24 AO 144 92 115 Post Procedure Information Blood Pressure: 132/91 mmHg Rhythm: NSR Post procedural instructions were given Closure Device Time Device Success/Fail 03/28/2017 3:20:00 PM Mechanical Compression Successful Site Checks Time Location Status Staff Sheath In? Note 03:22 PM Rt Wrist No bleeding/hematoma Ruth Plummer RT (R) Pulses Time Site Pre-Procedure Post-Procedure Note 03/28/2017 2:53:00 PM Bilateral radial 2+ 03/28/2017 2:54:00 PM Bilateral DP & PT 2+ 3:22:00 PM Bilateral radial 1+ Updated by Awa Benavidez RT (R) on 03/28/2017 3:33:27 PM Awa Benavidez RT electronically signed on 03/28/2017 3:34:06 PM with status of Final
--- NOTE | 2017-03-28 15:51 | Event Note ---
Date of Encounter: 03/28/17 Time of Encounter: 15:49 - Cardiology Event Note Per discussion with , no intervention needed per [facility]. Anomolous circumflex artery noted. Can consider chest CTA if continues to have chest pain in the outpatient setting. Cardiology will sign off and will follow in outpatient setting. Follow up set.
--- NOTE | 2017-03-28 17:24 | Discharge Summary ---
Date of Encounter: 03/28/17 Time of Encounter: 09:30 (and 1645) - Discharge Diagnosis (1) Chest pain Priority: Primary Status: Resolved Comments: Patient had brief episodes of chest pressure during this admission. Echocardiogram unremarkable. Troponins negative 3. Stress test abnormals of cardiology proceeded with a left heart catheter which did not require intervention. Qualifiers: Chest pain type: precordial pain Qualified Code(s): R07.2 - Precordial pain (2) Cardiac anomaly Priority: Primary Status: Acute (3) HTN (hypertension), benign Priority: Secondary Status: Chronic Comments: Uncontrolled at times during this admission. Amlodipine dosage was increased and she was started on metoprolol per cardiology. Recommend daily blood pressure checks at home, keeping a log, and following up outpatient. (4) ADHD (attention deficit hyperactivity disorder) Priority: Secondary Status: Chronic Comments: Mood and affect stable. 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 (6) Obese Priority: Secondary Status: Chronic - Discharge Medications Prescriptions: amLODIPine [Norvasc] 5 mg PO DAILY #30 tab Aspirin Enteric Coated [Aspirin EC] 81 mg PO DAILY #30 tab Blood Pressure Test Kit-Large [Blood Pressure Monitor] 1 each MC DAILY #1 kit Isosorbide MONOnitrate (24 HR) [Imdur] 30 mg PO DAILY #30 tab.er.24h Metoprolol XL (24 HR) Succ [Toprol Xl] 25 mg PO DAILY #30 tab Home Medications: Levothyroxine [Synthroid] 150 mcg PO DAILY 03/26/17 [History] Lisdexamfetamine Dimesylate [Vyvanse] 70 mg PO DAILY 03/26/17 [History] Aspirin Enteric Coated [Aspirin EC] 81 mg PO DAILY #30 tab 03/28/17 [Rx] Blood Pressure Test Kit-Large [Blood Pressure Monitor] 1 each MC DAILY #1 kit [Rx] Isosorbide MONOnitrate (24 HR) [Imdur] 30 mg PO DAILY #30 tab.er.24h 03/28/17 [ Rx] Levothyroxine [Synthroid] 125 mcg PO 0630 tab 03/28/17 [Rx] Metoprolol XL (24 HR) Succ [Toprol Xl] 25 mg PO DAILY #30 tab 03/28/17 [Rx] Patient Taking Own Medication 1 each PO DAILY each 03/28/17 [Rx] amLODIPine [Norvasc] 5 mg PO DAILY #30 tab 03/28/17 [Rx] Allergies/Adverse Reactions: 3 Allergy/AdvReac Type Severity Reaction Status Date / Time propoxyphene Allergy Vomiting Verified 03/25/17 19:47 [From Darvocet-N] Procedures/tests Complete & Pending: Procedures Performed prior 72 hours Category Date Time Status CL Cardiac Catheterization [CL] Routine Business Analytics Analyst 03/27/17 16:26 Completed NM gilbert perf SPECT multi [NM] Routine Exams 03/26/17 00:06 Taken EV carotid duplex imaging BI Routine Y 03/26/17 00:06 Completed EV echocardiogram Routine Y 03/26/17 00:04 Completed SP exercise nuclear stress Routine Y 03/26/17 00:05 Completed Date of admission: 03/25/17 23:19 Primary care physician: Jesus Raman Consults: 03/27/17 11:49 Consult to Cardiology [CONS] Routine Comment: Consulting Provider: [facility] Reason for Consult: abnl stress test Time Notified: 11:50 Call Completed: Yes Discharging clinician: Juhi Moreira Anticipated date of discharge: 03/28/17 - Patient Status Disposition: Home, Self-Care Condition: Good Functional capacity at discharge: independent ambulation Overall status at discharge: patient is back to baseline - Discharge Instructions Follow Up With: Kanchan Romero DO [Primary Care Provider] - (We have requested a follow up appointment with Dr Romero. The office will call you at home with an appointment date and time.) Khai Alexander MD [Partnered Physician] - Additional Instructions: Follow-up with primary care provider within one to 2 weeks, follow up with cardiology as scheduled. Check blood pressure daily and keep a log RISK FACTORS: STOP SMOKING: If you smoke, STOP. Smoking or tobacco use significantly increases your risk of heart disease because nicotine causes the arteries to narrow or constrict. It also causes fats to stick to the artery. Your chances of having a heart attack are greatly increased if you continue to smoke. For more information, call the education line for smoking cessation 6-760-SDGLIFO EAT A LOW FAT/CHOLESTEROL/SODIUM DIET: This diet may help reduce your chances of having a heart attack. LIFTING: With affected extremity: Avoid bending, pushing off and lifting more than 2 pounds for 24 hours The following 48 hours, avoid lifting anything more than 5 pounds Avoid strenuous activity or repetitive motions ACTIVITY: You may walk or climb stairs as tolerated You can resume sexual activity as tolerated In general, you are encouraged to engage in a minimum of 30 minutes or more of moderate intensity physical activity, such as brisk walking, daily or at least 3 -4 times weekly BATHING Do not submerge the site into water (bath tub, hot tub, swimming pool, dishes) for 1 week. This can be a source for infection into the blood stream. You may shower after 24 hours SITE CARE: After 24 hours, you may remove the dressing and leave the site open to air. Keep the site clean and dry. Clean gently and pat dry. You can expect bruising and tenderness that gradually resolve within a week or two. Return to work as instructed per your physician Resume driving as instructed per physician Keep all scheduled follow up appointments Resume medications as instructed IMPORTANT: If prescribed a Platelet Aggregation Inhibitor such as, Plavix, Brilinta or Effient: Duration of therapy is minimum one year These medications are often used in combination with Aspirin in prevention of future heart attacks Never discontinue unless consult with your Shift Lab Technician STROKE (CVA) Risk factors for a stroke are: Age, cigarette smoking, diabetes, excessive alcohol consumption, family history, high blood pressure, overweight, physical inactivity, prior stroke, heart attack, diagnosis of carotid artery stenosis or other artery disease. Warning signs: Sudden numbness or weakness of the face, arm or leg; especially on one side of the body, sudden confusion, trouble speaking or understanding, sudden trouble seeing in one or both eyes, sudden trouble walking, dizziness, loss of balance or coordination, sudden severe headache with no cause. Call 911 or go to the Emergency Room. CONGESTIVE HEART FAILURE: If you have been diagnosed with Congestive Heart Failure (CHF) and your symptoms return, make an appointment with your physician Weigh yourself daily. Notify your physician if you have a weight gain of two or more pounds in one day or five or more pounds in one week. If you experience any difficulty breathing, please call 911 BLEEDING: Although the risk of bleeding is minimal, it can happen. If you have any bleeding from the site, apply firm pressure above the puncture site for 10-15 minutes. If the bleeding does not stop, continue manual pressure and call 911 Contact [facility] ( ) if: You develop a fever greater than 101 degrees Fahrenheit Your site becomes reddened or has any drainage You have an increase in pain or burning at the site or if a large knot forms at the site. If you experience chest pain, shortness of breath, dizziness, or extreme tiredness, stop the activity and rest. Please notify [facility] office if you experience any of these symptoms and they are not relieved by rest please call 911! - Diet and Activity Activity: increase activity as tolerated Diet: low fat, low cholesterol, low salt diet Hospital course: Ms. Espinosa is a 41 year old female with past medical history of hypertension, ADHD. Patient presented to the emergency department chief complaint of chest pain. Patient noted onset of sternal located chest discomfort that started on the day of presentation, felt like a pinch with radiation to her left breast that lasted approximately 30 seconds or so and associated with shortness of breath. Patient stated felt like indigestion but did not burn. Associated symptoms include tightness along the left side of her neck and down her left arm and also a pulsatile/throbbing sensation to the left side of her neck. Patient also endorsed a whooshing sound to the left side of her neck. No CAD history and the patient, positive family history of CAD/NC. EKG in the emergency department revealing nonspecific T-wave depression in the lateral leads. Chest x-ray negative. Patient was admitted to the hospitalist service for further evaluation and management. Troponins negative 3. Echocardiogram unremarkable with ejection fraction of 60%, mild diastolic dysfunction, mild AR. Patient was euvolemic on examination and denied shortness of breath during this admission. Patient had a carotid ultrasound that was unremarkable and no bruit was appreciated on examination. Patient had a 2 day stress test that was abnormal. Cardiology was brought on board and the decision was made to proceed with a left heart catheter. 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 This area did not correlate with where the abnormality was on her stress test. Recommendation was to start the patient on aspirin, beta tiffany, and Imdur and have her follow up closely outpatient. She may need a cardiac CTA on an outpatient basis if her chest pain continues to further evaluate the circumflex anomaly. Patient was hypertensive upon arrival but blood pressure was controlled on the discharge with the new medications. She was sent home with a prescription for a blood pressure cuff so she can check her blood pressure daily at home and keep a log for her primary care team. She was discharged home in stable condition with close outpatient follow-up recommended. ITS Impressions Chest X-Ray 03/25/17 19:48 IMPRESSION: No acute findings. D/ / Deanna Chaparro MD / Deanna Chaparro MD Interpreting Provider: Deanna Chaparro MD Echocardiogram impressions: LVEF 60%. Normal LV chamber size, wall thickness and function. Mild left ventricular diastolic dysfunction. Normal right ventricular structure and function. Mild aortic regurgitation. No evidence of pulmonary hypertension. 2 Day Nuclear stress test impression: Exercise ECG demonstrated worsening of baseline ST-T changes, especially in the inferior leads (2-3mm ST depression) suggestive of ischemia. Exercise capacity was good. No chest pain. Gated ejection fraction greater than 70%. Small size, mild intensity, reversible defect in the mid to apical anterior lateral segments possibly due to ischemia. Ordering provider notified via [employer]. Carotid Duplex Procedure Date: 03/26/2017 Impressions: Findings: Bilateral carotid system is essentially normal. Reian Espinosa Date of Study: 03/28/2017 Procedure Physician: Khai Alexander MD, [facility] Transradial LEFT HEART CATH Indications: Abnormal Test - Stress Impressions: The left ventricle is normal and has normal contractility EF 55% Coronary arteries are angiographically normal. 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 Aggressive risk factor modification. Imdur 30mg daily, if continued symptoms despite medical management, outpatient cardiac CTA to evaluate the circumflex anatomy in relationship to the great vessels - Time Spent with Patient Total time spent providing and/or coordinating discharge services: - Constitutional Vitals: Temp Pulse Resp BP Pulse Ox 97.6 F 74 16 135/88 97 03/28/17 16:45 03/28/17 16:45 03/28/17 16:45 03/28/17 16:45 03/28/17 16:45 General appearance: Present: A&O X 3, morbidly obese, pleasant, no acute distress, answers questions appropriately - Head Head exam: Present: atraumatic, normocephalic - Eye Eye exam: Present: PERRL, conjuntiva pink, sclera anicteric Pupils: Present: PERRL - Neck Neck exam general surgery: Present: supple, trachea midline. Absent: lymphadenopathy - Expanded Neck Exam Neck exam: Absent: anterior neck swelling, carotid bruit, thyroid mass, tracheal deviation - Respiratory Respiratory exam: Present: CTAB. Absent: accessory muscle use, rales, respiratory distress, rhonchi, wheezes - Cardiovascular Cardiovascular exam: Present: RRR, +S1, +S2. Absent: diastolic murmur, gallop, rubs, systolic murmur - GI/Abdominal GI/Abdominal exam: Present: normal bowel sounds, soft, no peritoneal signs. Absent: distended, tenderness - Extremities Exam Extremities exam: Present: warm, radial pulses palpable and symmetrical. Absent : calf tenderness, cyanotic, pedal edema - Neurological Exam Neurological exam: Present: alert, CN II-XII intact, normal gait, oriented X3, no focal deficits, strengths equal and symetr throughout. Absent: pronater drift, facial droop, speech deficit - Skin Skin exam: Present: dry, intact, normal color, warm
[2017-03-28] MEDS ORDERED: amLODIPine 5 MG TABLET PO SCH (17:30)
[2017-03-28 18:17] VITALS: BP 142/92
[2017-03-28] MEDS: *HR* HYDROcodone/Acet 5/325 mg TABLET PO PRN (18:18)
--- NOTE | 2017-03-28 18:46 | Electrocardiograph Report ---
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
== END 2017-03-28 18:35 | disposition home or self-care (01) ==
LOC: 3BNU 19:06 → EMEROO 19:06 → 3BNU 03-26 00:31
PROVIDERS: ADMIT Internal Medicine; ATTEND Nurse Practitioner Family